=== PATIENT | female | born 1995 | race Caucasian/White ===

== ENCOUNTER 2017-10-08 06:28 | Emergency (ER) | payer SELFPAY ==
[2017-10-08] MEDS ORDERED: ONDANSETRON 4 MG TAB.RAPDIS PO ONE (06:54)
[2017-10-08] MEDS ORDERED: ACETAMINOPHEN 325 MG TABLET PO ONE (06:55)
--- NOTE | 2017-10-08 06:57 | ER Document Report ---
ED General - General Chief Complaint: Abdominal Pain Stated Complaint: BODY PAIN Time Seen by Provider: 10/08/17 06:49 Information source: Patient TRAVEL OUTSIDE OF THE [place] IN LAST 30 DAYS: No - HPI Patient complains to provider of: Possible urinary tract infection Notes: 22-year-old female who states she has a history of "double uterus and single right kidney" who presents with right-sided flank pain and possible UTI. Describes no change in odor to her urine but no frequency, urgency or dysuria. Gradual onset right lower back pain over the last day or so. Nausea but no significant vomiting. Pain radiates around at times to the front. Currently on her menstrual cycle. No fever, chills or sweats. No other modifying factors , no other associated symptoms, no other provocative or palliative factors. - Related Data Allergies/Adverse Reactions: No Known Allergies Allergy (Verified 10/08/17 06:31) Past Medical History - General Last Menstrual Period: Currently menstruating - Social History Smoking Status: Never Smoker Family History: Reviewed & Not Pertinent - Medical History Notes: Describes a history of "double uterus and single kidney", previous urinary tract infections Surgical Hx: Negative Review of Systems - Review of Systems Gastrointestinal: See HPI Genitourinary: See HPI Female Genitourinary: See HPI -: Yes All other systems reviewed and negative Physical Exam - Vital signs Vitals: Temp Pulse Resp BP Pulse Ox 98.2 F 81 20 117/69 99 10/08/17 06:35 10/08/17 06:35 10/08/17 06:35 10/08/17 06:35 10/08/17 06:35 - Notes Notes: General: Well-developed HEENT: NC/AT, PERRL. No pharyngeal injection. Neck: Supple, no JVD. Chest: There with good air exchange. Cardiac: Rate and rhythm Abdomen:, Nondistended, no guarding rigidity or rebound. Nontender. Back: Left CVAT, unremarkable. Motor: Normal tone and power. Neurologic: Alert, nonfocal. Skin: Rashes petechiae or purpura. Extremeties: Perfused, no significant edema. Course - Re-evaluation Re-evalutation: 10/08/17 08:45 22-year-old female presents with symptoms that suggest pyelonephritis. Extremity features include her stated history. She is nontoxic in appearance, not febrile, tachycardic, suspicion for sepsis or severe sepsis is very low. Plan to proceed with DPT, urinalysis, reevaluate. 10/08/17 08:46 Patient is reevaluated, did have some persistent pain responsive to injection morphine. Urinalysis is reviewed and shows evidence of infection. She is treated with injection ceftriaxone, previously received oral Zofran. Discharged home with a prescription for Cipro and ondansetron, asked to follow- up closely with her primary care physician and may benefit from urology follow- up. - Vital Signs Vital signs: Temp Pulse Resp BP Pulse Ox 98.7 F 56 L 18 95/53 L 99 10/08/17 08:42 10/08/17 08:42 10/08/17 08:42 10/08/17 08:42 10/08/17 08:42 - Laboratory Laboratory results interpreted by me: 10/08/17 07:08 Urine Protein 30 H Urine Blood SMALL H Urine Nitrite POSITIVE H Urine Urobilinogen 2.0 H Ur Leukocyte Esterase LARGE H Discharge - Discharge Clinical Impression: Pyelonephritis Condition: Good Disposition: HOME, SELF-CARE Instructions: Pyelonephritis ([facility]) Prescriptions: Ciprofloxacin HCl [Cipro 500 mg Tablet] 500 mg PO BID #20 tablet Ondansetron [Zofran Odt 4 mg Tablet] 1 - 2 tab PO Q4H PRN #15 tab.rapdis PRN Reason: For Nausea/Vomiting
[2017-10-08 07:46] LABS: APPEARANCE,URINE HAZY; BILIRUBIN,URINE NEGATIVE (NEGATIVE); COLOR,URINE YELLOW; GLUCOSE, URINE NEGATIVE (NEGATIVE); KETONES,URINE NEGATIVE (NEGATIVE); NITRITE,URINE POSITIVE (NEGATIVE); PROTEIN,URINE 30 mg/dL (NEGATIVE); URINE SPECIFIC GRAVITY 1.025
[2017-10-08 07:47] LABS: LEUKOCYTE ESTERASE,URINE LARGE (NEGATIVE)
[2017-10-08] MEDS ORDERED: LIDOCAINE 1% INJ-PF (10 MG/ML) 30 ML SDV INJ ONE (07:53)
[2017-10-08] MEDS ORDERED: CEFTRIAXONE INJ 1000 MG VIAL IM ONE (07:53)
[2017-10-08] MEDS ORDERED: MORPHINE SULFATE 10 MG/ML INJ IM ONE (07:53)
[2017-10-08 08:43] VITALS: BP 95/53
== END 2017-10-08 08:44 | disposition home or self-care (01) ==
LOC: ER 06:28
DX: N12 Tubulo-interstitial nephritis, not specified as acute or chronic (principal); M54.5 Low back pain; R11.0 Nausea
CPT/HCPCS: 99283; 96372; 51701; 81025; 81001; S0119; J3490; J2270; J0696

== ENCOUNTER 2017-11-07 23:01 | Emergency (ER) | payer SELFPAY ==
[2017-11-08] MEDS ORDERED: DEXAMETHASONE SOD PHOS INJ 10 MG/1 ML VIAL IV ONE ×2 (01:11→03:18)
[2017-11-08] MEDS ORDERED: AMPICILLIN SOD/SULBACTAM 3 GM VIAL IV ONE (01:11)
--- NOTE | 2017-11-08 01:13 | ER Document Report ---
ED Medical Screen (RME) - General Chief Complaint: Throat and ear pain Stated Complaint: THROAT AND EAR PAIN Time Seen by Provider: 11/08/17 01:10 Mode of Arrival: Ambulatory Information source: Patient Notes: Patient presents complaining of sore throat for the past week that worsened over the past 3 days. Patient reports difficulty with speaking and is texting her information in triage. Patient with erythema and swelling to right peritonsillar area I have greeted and performed a rapid initial assessment of this patient. A comprehensive ED assessment and evaluation of the patient, analysis of test results and completion of the medical decision making process will be conducted by additional ED providers. TRAVEL OUTSIDE OF THE [place] IN LAST 30 DAYS: No - Related Data Allergies/Adverse Reactions: No Known Allergies Allergy (Verified 10/08/17 06:31) Past Medical History Renal/ Medical History: Denies: Hx Peritoneal Dialysis Physical Exam - Vital signs Vitals: Temp Pulse Resp BP Pulse Ox 98.5 F 82 20 128/75 H 100 11/08/17 00:32 11/08/17 00:32 11/08/17 00:32 11/08/17 00:32 11/08/17 00:32 - HEENT Pharynx: Erythema, Peritonsillar abscess Course - Vital Signs Vital signs: Temp Pulse Resp BP Pulse Ox 98.5 F 82 20 128/75 H 100 11/08/17 00:32 11/08/17 00:32 11/08/17 00:32 11/08/17 00:32 11/08/17 00:32
[2017-11-08] MEDS ORDERED: NORMAL SALINE 1000 ML 1,000 ML IV ONE (01:21)
[2017-11-08 01:54] LABS: ABSOLUTE EOSINOPHILS # (AUTO) 0.1 10^3/uL (0.0-0.6); ABSOLUTE LYMPHOCYTES (AUTO) 1.9 10^3/uL (0.5-4.7); ABSOLUTE NEUT (AUTO) 9.2 10^3/uL (1.7-8.2); BASOPHILS % (AUTO) 0.3 % (0-2); EOSINOPHILS % (AUTO) 0.6 % (0-6); HEMATOCRIT 39.3 % (36.0-47.0); HEMOGLOBIN 13.4 g/dL (12.0-15.5); LYMPHOCYTES % (AUTO) 15.8 % (13-45); MEAN CORPUSCULAR HEMOGLOBIN 31.9 pg (27.0-33.4); MEAN CORPUSCULAR HGB CONC 34.1 g/dL (32.0-36.0); MEAN CORPUSCULAR VOLUME 94 fl (80-97); MONOCYTES % (AUTO) 8.2 % (3-13); PLATELET COUNT 283 10^3/uL (150-450); RED BLOOD COUNT 4.19 10^6/uL (3.72-5.28); RED CELL DISTRIBUTION WIDTH 12.1 % (11.5-14.0); SEGMENTED NEUTROPHILS % (AUTO) 75.1 % (42-78); TOTAL CELLS COUNTED % (AUTO) 100 %; WHITE BLOOD COUNT 12.2 10^3/uL (4.0-10.5)
[2017-11-08 02:04] LABS: ANION GAP 12 (5-19); BLOOD UREA NITROGEN 11 mg/dL (7-20); CALCIUM 9.4 mg/dL (8.4-10.2); CARBON DIOXIDE 30 mmol/L (22-30); CHLORIDE 103 mmol/L (98-107); GLUCOSE 104 mg/dL (75-110); POTASSIUM 3.8 mmol/L (3.6-5.0); SODIUM 145.4 mmol/L (137-145)
--- NOTE | 2017-11-08 02:57 | RADIOLOGY REPORT (SQ) ---
EXAM DESCRIPTION: CT SOFT TISSUE NECK WITH CLINICAL HISTORY: 22 years Female, evaluate for abscess COMPARISON: None. TECHNIQUE: IV contrast. Coronal and sagittal reformat. This exam was performed according to our departmental dose-optimization program, which includes automated exposure control, adjustment of the mA and/or kV according to patient size and/or use of iterative reconstruction technique. FINDINGS: Moderate diffuse pharyngeal enlargement, right more than left with small edematous component on the right measuring 0.8 cm; no froylan abscess and no drainable fluid collection. Moderate suprahyoid cervical lymphadenopathy includes a 3 x 1.7 x 1.0 cm right upper cervical lymph node, image 20 of series 301. Mild diffuse reversed lordotic curvature of the cervical spine, nonspecific. No fracture or subluxation. Vertebral and intervertebral heights are normal. Nuchal soft tissues, inferior cranium, and upper thorax appear otherwise grossly intact. Impression: Moderate pharyngitis pattern. Moderate cervical lymphadenopathy. Infectious, inflammatory, neoplastic processes are in the differential diagnosis.
[2017-11-08] MEDS ORDERED: PENICILLIN G BENZATHINE 1.2 MILLION UNIT/2 ML DISP.SYRIN IM ONE (03:16)
--- NOTE | 2017-11-08 04:37 | ER Document Report ---
ED ENT - General Chief Complaint: Throat and ear pain Stated Complaint: THROAT AND EAR PAIN Time Seen by Provider: 11/08/17 01:10 Mode of Arrival: Ambulatory Information source: Patient Notes: Patient is a 22-year-old female who presents the emergency department with complaints of sore throat 10 days. Patient reports that she has been having difficulty swallowing and a hoarse voice for the entire 10 days. Patient denies having any fevers, nausea or vomiting. Patient denies any other past medical history. Patient denies any surgical history. TRAVEL OUTSIDE OF THE [place] IN LAST 30 DAYS: No - Related Data Allergies/Adverse Reactions: No Known Allergies Allergy (Verified 11/08/17 02:00) Past Medical History - General Information source: Patient - Social History Smoking Status: Never Smoker Chew tobacco use (# tins/day): No Drug Abuse: None Family History: Reviewed & Not Pertinent Patient has suicidal ideation: No Patient has homicidal ideation: No Renal/ Medical History: Reports: Hx Kidney Stones. Denies: Hx Peritoneal Dialysis Review of Systems - Review of Systems Constitutional: No symptoms reported EENT: Ear pain - right, Throat pain, Difficulty swallowing Cardiovascular: No symptoms reported Respiratory: No symptoms reported Gastrointestinal: No symptoms reported Genitourinary: No symptoms reported Female Genitourinary: No symptoms reported Musculoskeletal: No symptoms reported Skin: No symptoms reported Hematologic/Lymphatic: No symptoms reported Neurological/Psychological: No symptoms reported Physical Exam - Vital signs Vitals: Temp Pulse Resp BP Pulse Ox 98.5 F 82 20 128/75 H 100 11/08/17 00:32 11/08/17 00:32 11/08/17 00:32 11/08/17 00:32 11/08/17 00:32 - Notes Notes: PHYSICAL EXAMINATION: GENERAL: Well-appearing, well-nourished and in no acute distress. HEAD: Atraumatic, normocephalic. EYES: Pupils equal round and reactive to light, extraocular movements intact, conjunctiva are normal. ENT: Nares patent, oropharynx significantly swollen, uvula midline, exudates. Moist mucous membranes. NECK: Normal range of motion, supple without lymphadenopathy LUNGS: Breath sounds clear to auscultation bilaterally and equal. No wheezes rales or rhonchi. HEART: Regular rate and rhythm without murmurs ABDOMEN: Soft, nontender, nondistended abdomen. No guarding, no rebound. No masses appreciated. Female : deferred Musculoskeletal: Normal range of motion, no pitting or edema. No cyanosis. NEUROLOGICAL: Cranial nerves grossly intact. Normal speech, normal gait. Normal sensory, motor exams PSYCH: Normal mood, normal affect. SKIN: Warm, Dry, normal turgor, no rashes or lesions noted. Course - Re-evaluation Re-evalutation: Patient brought immediately from triage to trauma 1 for concern of possible peritonsillar abscess. Patient is reporting 10 day history of sore throat with hoarse voice and difficulty swallowing. Patient's voice is muffled however she is able to speak in complete sentences and is able to swallow her saliva. CT of the neck soft tissue with contrast ordered, dexamethasone IV and Unasyn ordered. Patient does have significant swelling to the oropharynx however she is maintaining her airway at this time. CT soft tissue shows no peritonsillar abscess or emergent findings. Rapid strep is positive. Patient will be given additional dose of Decadron as well as IM penicillin. Patient already has improvement with first dose of Decadron. Patient is able to tolerate p.o. fluids. Will discharge patient home with strict ED return precautions. Patient verbalizes understanding. Work note provided for 2 days off of work. - Vital Signs Vital signs: Temp Pulse Resp BP Pulse Ox 98.3 F 82 18 114/81 99 11/08/17 04:30 11/08/17 00:32 11/08/17 04:30 11/08/17 04:30 11/08/17 04:30 - Laboratory Result Diagrams: 11/08/17 01:37 11/08/17 01:37 Laboratory results interpreted by me: 11/08/17 11/08/17 01:37 01:37 WBC 12.2 H Absolute Neutrophils 9.2 H Sodium 145.4 H Discharge - Discharge Clinical Impression: Strep pharyngitis Condition: Stable Disposition: HOME, SELF-CARE Instructions: Family Physicians / Practices, Penicillin V K ([facility]), Strep Throat ([facility]) Additional Instructions: Please return to the emergency department immediately if you develop difficulty swallowing, increased pain or fever that is uncontrolled by Tylenol or ibuprofen. You were given the antibiotics shot of penicillin as well as a dose of Decadron IV so there is no need for any further prescriptions. Please establish care with a primary care provider as well at your earliest convenience. Forms: Return to School
[2017-11-08 04:51] VITALS: BP 114/81
== END 2017-11-08 04:51 | disposition home or self-care (01) ==
LOC: ER 23:01
DX: J02.0 Streptococcal pharyngitis (principal); H92.01 Otalgia, right ear; R49.0 Dysphonia
CPT/HCPCS: 96376; 99284; 96372; 96361; 96374; 96375; 36415; 87040; 87880; 85025; 80048; 70491; J0295; J0561; J7030; J1100

== ENCOUNTER 2017-12-22 14:07 | Emergency (ER) | payer MEDICAID, OTHER ==
[2017-12-22 14:15] VITALS: BP 115/68
[2017-12-22] MEDS ORDERED: DEXAMETHASONE SOD PHOS INJ 10 MG/1 ML VIAL IM ONE (14:52)
--- NOTE | 2017-12-22 14:52 | ER Document Report ---
HPI - HPI Pain Level: 1 Notes: Patient is a 22-year-old female with a history of strep pharyngitis who presents to the ED complaining of a sore throat and occasional dry nonproductive cough times 1 week. Patient states that she is still eating and drinking without difficulties. She is urinating normally and having normal bowel movements. She denies any drug allergies. No other concerns or complaints at this time. Denies any headache, fever, neck pain, drooling, hoarseness, troublw swallowing, URI, sore throat, chest pain, palpitations, syncope, cough, shortness of breath, wheeze, dyspnea, abdominal pain, nausea/ vomiting/diarrhea, urinary retention, dysuria, hematuria, or rash. - ROS Systems Reviewed and Negative: Yes All other systems reviewed and negative - EENT EENT: REPORTS: Sore Throat Past Medical History - Social History Smoking Status: Never Smoker Chew tobacco use (# tins/day): No Frequency of alcohol use: Rare Drug Abuse: None Family History: Reviewed & Not Pertinent Patient has suicidal ideation: No Patient has homicidal ideation: No Renal/ Medical History: Reports: Hx Kidney Stones. Denies: Hx Peritoneal Dialysis Past Surgical History: Reports: Hx Orthopedic Surgery - L foot Vertical Provider Document - CONSTITUTIONAL Agree With Documented VS: Yes Notes: PHYSICAL EXAMINATION: GENERAL: Well-appearing, well-nourished and in no acute distress. A&Ox4. Answers questions appropriately. Moves comfortably w/o notable distress HEAD: Atraumatic, normocephalic. EYES: Pupils equal round and reactive to light, extraocular movements intact, sclera anicteric, conjunctiva are normal. ENT: EAC clear b/l. TM's intact b/l without erythema, fluid, or perforation. Nares patent and with clear discharge. oropharynx mild erythema without exudates. 2+ tonsilar hypertrophy with erythema no exudate. No palatine shift. Uvula midline. No tongue protrusion. No drooling, hoarseness, or airway compromise. Moist mucous membranes. No sinus tenderness. NECK: Normal range of motion, supple without lymphadenopathy. No rigidity/ meningismus. LUNGS: Breath sounds clear to auscultation bilaterally and equal. No wheezes rales or rhonchi. No retractions HEART: Regular rate and rhythm without murmurs, rubs, gallops. ABDOMEN: Soft, nontender, nondistended abdomen. No guarding, no rebound. No masses appreciated. Normal bowel sounds present. No CVA tenderness bilaterally. No hepatosplenomegaly. NEUROLOGICAL: Normal speech, normal gait. Normal sensory, motor exams PSYCH: Normal mood, normal affect. SKIN: Warm, Dry, normal turgor, no rashes or lesions noted. - INFECTION CONTROL TRAVEL OUTSIDE OF THE [place] IN LAST 30 DAYS: No Course - Re-evaluation Re-evalutation: 12/22/17 15:14 Patient is an afebrile, well-hydrated, 22-year-old acuteo strep pharyngitis. Vitals are acceptable. PE is otherwise unremarkable. Rapid strep was positive. Patient has no significant tachycardia, tachypnea, or hypoxia. She is tolerating p.o. without difficulties and is nontoxic-appearing. Decadron given IM today. No other labs or imaging warranted at this time based on H&P. Low suspicion for any meningitis, sepsis, peritonsillar/pharyngeal abscess, respiratory compromise, Luis Angel's, or other emergent systemic condition at this time. Patient is aware this condition can change from initial presentation and she needs to monitor symptoms closely. Rx for penicillin. Conservative measures otherwise for symptoms. Recheck with your PCM in 3-5 days. Return to the ED with any worsening/concerning symptoms otherwise as reviewed in discharge. Patient is in agreement. - Vital Signs Vital signs: Temp Pulse Resp BP Pulse Ox 98.5 F 83 16 115/68 99 12/22/17 14:14 12/22/17 14:14 12/22/17 14:14 12/22/17 14:14 12/22/17 14:14 Discharge - Discharge Clinical Impression: Strep pharyngitis Condition: Stable Disposition: HOME, SELF-CARE Instructions: Strep Throat ([facility]), Penicillin V K ([facility]) Additional Instructions: Maintain adequate fluid intake Take meds as directed Salt water gargles, throat sprays, mouthwash rinse, peroxide gargles tylenol/ibuprofen as needed New toothbrush tomorrow night over the counter cold medication as needed for symptoms F/u: with your PCM in 3-5 days for a recheck Consider consult with ENT for ongoing/worsening symptoms Return to the ED with any fever, worsening pain, chest pain, neck pain/stiffness , shortness of breath, cough, drooling, trouble swallowing/breathing, abdominal pain, n/v/d, rash, or worsening/concerning symptoms otherwise. Prescriptions: Penicillin V Potassium [Penicillin Vk 250 mg Tablet] 500 mg PO BID #40 tablet Referrals: RUBENS CRAIG DO [ASSOCIATE] - Follow up as needed
== END 2017-12-22 15:25 | disposition home or self-care (01) ==
LOC: ER 14:07
DX: J02.0 Streptococcal pharyngitis (principal); Z87.442 Personal history of urinary calculi
CPT/HCPCS: 99283; 96372; 87880; J1100

== ENCOUNTER 2018-03-15 15:01 | Emergency (ER) | payer MEDICAID, OTHER ==
[2018-03-15] MEDS ORDERED: FENTANYL CITRATE INJ/PF 100 MCG/2 ML AMPUL IV ONE (15:24)
[2018-03-15] MEDS ORDERED: NORMAL SALINE 1000 ML 1,000 ML IV ONE (15:24)
--- NOTE | 2018-03-15 15:25 | ER Document Report ---
HPI - HPI Patient complains to provider of: Calf pain Onset: Other - 2 days Onset/Duration: Persistent Quality of pain: Achy Pain Level: 5 Context: Patient presents complaining of bilateral calf pain for the past 2 days since working out in the gym. Patient states that she worked her legs heavily 2 days ago. Patient denies going to the gym since then. Patient denies any traumatic injury to the calves. Patient states the pain limits her ability to walk. Associated Symptoms: Other - Bilateral calf pain. denies: Chest pain, Headache , Shortness of breath Exacerbated by: Standing, Movement, Walking Relieved by: Denies Similar symptoms previously: No Recently seen / treated by doctor: No - ROS ROS below otherwise negative: Yes Systems Reviewed and Negative: Yes All other systems reviewed and negative - CONSTITUTIONAL Constitutional: DENIES: Fever - NEURO Neurology: DENIES: Weakness - CARDIOVASCULAR Cardiovascular: DENIES: Chest pain - GASTROINTESTINAL Gastrointestinal: DENIES: Patient vomiting - MUSCULOSKELETAL Musculoskeletal: REPORTS: Extremity pain. DENIES: Swelling - DERM Skin Color: Normal Skin Problems: None Past Medical History - General Information source: Patient - Social History Smoking Status: Never Smoker Frequency of alcohol use: None Drug Abuse: None Occupation: Lives with: Spouse/Significant other Family History: Reviewed & Not Pertinent Renal/ Medical History: Reports: Hx Kidney Stones, Other - Patient with only one kidney. Denies: Hx Peritoneal Dialysis Past Surgical History: Reports: Hx Orthopedic Surgery - L foot Vertical Provider Document - CONSTITUTIONAL Agree With Documented VS: Yes Exam Limitations: No Limitations General Appearance: WD/WN, No Apparent Distress - INFECTION CONTROL TRAVEL OUTSIDE OF THE [place] IN LAST 30 DAYS: No - HEENT HEENT: Atraumatic, Normocephalic - NECK Neck: Normal Inspection - RESPIRATORY Respiratory: Breath Sounds Normal, No Respiratory Distress - CARDIOVASCULAR Cardiovascular: Regular Rate, Regular Rhythm Pulses: Normal: Dorsalis pedis - BACK Back: Normal Inspection - MUSCULOSKELETAL/EXTREMETIES Musculoskeletal/Extremeties: MAEW, Tender - Bilateral calf tenderness, normal skin color and temperature overlying areas of tenderness. Muscle compartments soft, No Edema. negative: Eccymosis Notes: Bilateral calf tenderness increases with plantar and dorsiflexion of feet - NEURO Level of Consciousness: Awake, Alert, Appropriate Motor/Sensory: No Motor Deficit, No Sensory Deficit - DERM Integumentary: Warm, Dry, No Rash Course - Re-evaluation Re-evalutation: 03/15/18 17:[address] Mcdowell regarding patient presentation and patient in the light of only having one kidney. Agrees with plan of care at this time and treating symptomatically. No additional diagnostic tests advised at this time. She is, no concern for compartment syndrome. No concern for rhabdomyolysis. Patient has not worked out for the past 2 days. - Vital Signs Vital signs: Temp Pulse Resp BP Pulse Ox 98.6 F 58 L 114/66 100 03/15/18 15:07 03/15/18 15:07 03/15/18 15:07 03/15/18 15:07 - Laboratory Result Diagrams: 03/15/18 16:30 03/15/18 16:30 Laboratory results interpreted by me: 03/15/18 17:23 Labs- Entire Visit 03/15/18 03/15/18 16:30 16:30 WBC 5.8 RBC 4.29 Hgb 13.7 Hct 40.3 MCV 94 MCH 31.9 MCHC 33.9 RDW 12.2 Plt Count 261 Seg Neutrophils % 49.8 Lymphocytes % 38.2 Monocytes % 9.1 Eosinophils % 2.3 Basophils % 0.6 Absolute Neutrophils 2.9 Absolute Lymphocytes 2.2 Absolute Monocytes 0.5 Absolute Eosinophils 0.1 Absolute Basophils 0.0 Sodium 144.6 Potassium 4.3 Chloride 106 Carbon Dioxide 28 Anion Gap 11 BUN 10 Creatinine 0.71 Est GFR ( Amer) > 60 Est GFR (Non-Af Amer) > 60 Glucose 86 Calcium 9.3 Creatine Kinase 2836 H Discharge - Discharge Clinical Impression: Bilateral calf pain, Muscle strain Condition: Stable Disposition: HOME, SELF-CARE Instructions: Muscle Relaxers ([facility]), Muscle Strain ([facility]) Additional Instructions: Return immediately for any new or worsening symptoms Followup with your primary care provider, call tomorrow to make a followup appointment Prescriptions: Methocarbamol [Robaxin 500 Mg Tablet] 500 mg PO QID PRN #24 tablet PRN Reason: Referrals: [facility] [Provider Group] - Follow up as needed
[2018-03-15 16:43] LABS: ABSOLUTE EOSINOPHILS # (AUTO) 0.1 10^3/uL (0.0-0.6); ABSOLUTE LYMPHOCYTES (AUTO) 2.2 10^3/uL (0.5-4.7); ABSOLUTE MONOCYTES (AUTO) 0.5 10^3/uL (0.1-1.4); ABSOLUTE NEUT (AUTO) 2.9 10^3/uL (1.7-8.2); BASOPHILS % (AUTO) 0.6 % (0-2); EOSINOPHILS % (AUTO) 2.3 % (0-6); HEMATOCRIT 40.3 % (36.0-47.0); HEMOGLOBIN 13.7 g/dL (12.0-15.5); LYMPHOCYTES % (AUTO) 38.2 % (13-45); MEAN CORPUSCULAR HEMOGLOBIN 31.9 pg (27.0-33.4); MEAN CORPUSCULAR HGB CONC 33.9 g/dL (32.0-36.0); MEAN CORPUSCULAR VOLUME 94 fl (80-97); MONOCYTES % (AUTO) 9.1 % (3-13); PLATELET COUNT 261 10^3/uL (150-450); RED BLOOD COUNT 4.29 10^6/uL (3.72-5.28); RED CELL DISTRIBUTION WIDTH 12.2 % (11.5-14.0); SEGMENTED NEUTROPHILS % (AUTO) 49.8 % (42-78); TOTAL CELLS COUNTED % (AUTO) 100 %; WHITE BLOOD COUNT 5.8 10^3/uL (4.0-10.5)
[2018-03-15 17:00] LABS: ANION GAP 11 (5-19); BLOOD UREA NITROGEN 10 mg/dL (7-20); CALCIUM 9.3 mg/dL (8.4-10.2); CARBON DIOXIDE 28 mmol/L (22-30); CHLORIDE 106 mmol/L (98-107); GLUCOSE 86 mg/dL (75-110); POTASSIUM 4.3 mmol/L (3.6-5.0); SODIUM 144.6 mmol/L (137-145)
[2018-03-15 17:08] LABS: CREATINE KINASE 2836 U/L (30-135)
[2018-03-15 17:55] VITALS: BP 97/51
== END 2018-03-15 17:55 | disposition home or self-care (01) ==
LOC: ER 15:01
DX: S86.912A Strain of unspecified muscle(s) and tendon(s) at lower leg level, left leg, initial encounter (principal); S86.911A Strain of unspecified muscle(s) and tendon(s) at lower leg level, right leg, initial encounter; M79.604 Pain in right leg; M79.605 Pain in left leg; X58.XXXA Exposure to other specified factors, initial encounter
CPT/HCPCS: 99283; 96361; 96374; 36415; 82550; 85025; 80048; J3010; J7030

== ENCOUNTER 2018-04-28 01:44 | Emergency (ER) | payer OTHER ==
[2018-04-28 02:57] LABS: ABSOLUTE EOSINOPHILS # (AUTO) 0.2 10^3/uL (0.0-0.6); ABSOLUTE LYMPHOCYTES (AUTO) 2.5 10^3/uL (0.5-4.7); ABSOLUTE MONOCYTES (AUTO) 0.6 10^3/uL (0.1-1.4); ABSOLUTE NEUT (AUTO) 2.8 10^3/uL (1.7-8.2); BASOPHILS % (AUTO) 0.5 % (0-2); HEMATOCRIT 40.1 % (36.0-47.0); LYMPHOCYTES % (AUTO) 41.3 % (13-45); MEAN CORPUSCULAR HEMOGLOBIN 32.4 pg (27.0-33.4); MEAN CORPUSCULAR HGB CONC 34.9 g/dL (32.0-36.0); MEAN CORPUSCULAR VOLUME 93 fl (80-97); MONOCYTES % (AUTO) 9.6 % (3-13); PLATELET COUNT 270 10^3/uL (150-450); RED BLOOD COUNT 4.32 10^6/uL (3.72-5.28); RED CELL DISTRIBUTION WIDTH 12.5 % (11.5-14.0); SEGMENTED NEUTROPHILS % (AUTO) 45.6 % (42-78); TOTAL CELLS COUNTED % (AUTO) 100 %; WHITE BLOOD COUNT 6.1 10^3/uL (4.0-10.5)
[2018-04-28] MEDS ORDERED: NORMAL SALINE 1000 ML 1,000 ML IV ONE (03:06)
[2018-04-28] MEDS ORDERED: ONDANSETRON HCL INJ/PF 4 MG/2 ML SDV IV ONE (03:06)
[2018-04-28] MEDS ORDERED: MORPHINE SULFATE 10 MG/ML INJ IV ONE ×2 (03:09→04:33)
--- NOTE | 2018-04-28 03:23 | ER Document Report ---
ED GI/ - General Mode of Arrival: Ambulatory Information source: Patient TRAVEL OUTSIDE OF THE [place] IN LAST 30 DAYS: No - HPI Patient complains to provider of: Abdominal pain Onset: Yesterday Timing/Duration: Gradual Quality of pain: Achy Severity at maximum: Moderate Severity in ED: Moderate Location: Right flank Vaginal bleeding (Compared to normal period): Similar Associated symptoms: Nausea, Vomiting Exacerbated by: Denies Relieved by: Denies Similar symptoms previously: Yes Recently seen / treated by doctor: No <CARIN HAY - Last Filed: 04/28/18 06:19> <ELIZABETH KO - Last Filed: 04/28/18 07:30> - General Chief Complaint: Abdominal Pain Stated Complaint: ABDOMINAL PAIN Time Seen by Provider: 04/28/18 02:43 - HPI Notes: 04/28/18 03:22 Patient is a 22-year-old female presenting to the emergency room complaining of right flank pain with cramping and nausea and vomiting since yesterday, she reports a history of similar symptoms previously with a urinary tract infection , she was born with only one kidney, she is also currently having menstrual bleeding consistent with her menstrual cycle, denies any fever or chills, no difficulty passing urine or bowel movements (CARIN HAY) - Related Data Allergies/Adverse Reactions: No Known Allergies Allergy (Verified 03/15/18 15:05) Past Medical History - General Information source: Patient - Social History Smoking Status: Never Smoker Chew tobacco use (# tins/day): No Drug Abuse: None Family History: Reviewed & Not Pertinent Patient has suicidal ideation: No Patient has homicidal ideation: No Renal/ Medical History: Reports: Hx Kidney Stones. Denies: Hx Peritoneal Dialysis Past Surgical History: Reports: Hx Orthopedic Surgery - L foot <CARIN HAY - Last Filed: 04/28/18 06:19> Review of Systems - Review of Systems Constitutional: No symptoms reported EENT: No symptoms reported Cardiovascular: No symptoms reported Respiratory: No symptoms reported Gastrointestinal: See HPI Genitourinary: See HPI Female Genitourinary: See HPI Musculoskeletal: No symptoms reported Skin: No symptoms reported Hematologic/Lymphatic: No symptoms reported Neurological/Psychological: No symptoms reported -: Yes All other systems reviewed and negative <CARIN HAY - Last Filed: 04/28/18 06:19> Physical Exam - Vital signs Interpretation: Normal - General General appearance: Appears well, Alert - HEENT Head: Normocephalic, Atraumatic Eyes: Normal Pupils: PERRL - Respiratory Respiratory status: No respiratory distress Chest status: Nontender Breath sounds: Normal Chest palpation: Normal - Cardiovascular Rhythm: Regular Heart sounds: Normal auscultation Murmur: No - Abdominal Inspection: Normal Distension: No distension Bowel sounds: Normal Tenderness: Tender - Right flank and suprapubic Organomegaly: No organomegaly - Back Back: Normal, Nontender - Extremities General upper extremity: Normal inspection, Nontender, Normal color, Normal ROM , Normal temperature General lower extremity: Normal inspection, Nontender, Normal color, Normal ROM , Normal temperature, Normal weight bearing. No: Jorje's sign - Neurological Neuro grossly intact: Yes Cognition: Normal Orientation: AAOx4 Melanie Coma Scale Eye Opening: Spontaneous [place] Coma Scale Verbal: Oriented Melanie Coma Scale Motor: Obeys Commands [place] Coma Scale Total: 15 Speech: Normal Motor strength normal: LUE, RUE, LLE, RLE Sensory: Normal - Psychological Associated symptoms: Normal affect, Normal mood - Skin Skin Temperature: Warm Skin Moisture: Dry Skin Color: Normal <CARIN HAY - Last Filed: 04/28/18 06:19> - Vital signs Vitals: Temp Pulse Resp BP Pulse Ox 97.4 F 63 22 H 131/74 H 99 04/28/18 02:40 04/28/18 02:40 04/28/18 02:40 04/28/18 02:40 04/28/18 02:40 Course - Laboratory Result Diagrams: 04/28/18 02:50 04/28/18 02:50 - Transfer of Care Care transferred to following provider: Dr Crystal Ko, imaging/disposition <CARIN HAY - Last Filed: 04/28/18 06:19> - Laboratory Result Diagrams: 04/28/18 02:50 04/28/18 02:50 <ELIZABETH KO - Last Filed: 04/28/18 07:30> - Re-evaluation Re-evalutation: Patient was signed out to me, her blood work, urinalysis and pelvic ultrasound were reviewed, no evidence of torsion on ultrasound, blood work was unremarkable , normal renal function, her urinalysis did have blood but she is on her menstrual period, no evidence of infection, patient's signs and symptoms seem possibly related to a kidney stone/ureteral stone, however in this patient I do not feel compelled to perform CT imaging on her, she is currently pain-free, she was having colicky type pain, and now she only feels a "twinge, in the suprapubic region just off to the left side, I will discharge her home on Percocet, and 5 days of Flomax, presuming this is most likely a kidney stone, advised her to follow-up with primary care physician, if her symptoms worsen, do not hesitate to return to the emergency department. (ELIZABETH KO) - Vital Signs Vital signs: Temp Pulse Resp BP Pulse Ox 97.5 F 74 18 92/53 L 98 04/28/18 06:43 04/28/18 06:43 04/28/18 06:43 04/28/18 06:43 04/28/18 06:43 - Laboratory Laboratory results interpreted by me: 04/28/18 04/28/18 02:50 03:19 Chloride 108 H Urine Blood LARGE H Ur Leukocyte Esterase SMALL H Discharge <CARIN HAY - Last Filed: 04/28/18 06:19> <ELIZABETH KO - Last Filed: 04/28/18 07:30> - Discharge Clinical Impression: Abdominal pain Qualifiers: Abdominal location: left lower quadrant Qualified Code(s): R10.32 - Left lower quadrant pain Condition: Stable Disposition: HOME, SELF-CARE Instructions: Abdominal Pain ([facility]) Additional Instructions: Please return to the emergency department if you have any worsening, or concern of your symptoms. Please return to the emergency department if you develop chest pain, difficulty breathing, severe abdominal pain, or ongoing vomiting. Please follow-up with your primary care physician in 2-3 days and any other recommended physicians. If prescribed, take all medications as directed. If you have any questions or concerns do not hesitate to return the emergency department for evaluation. Prescriptions: Tamsulosin HCl [Flomax] 0.4 mg PO QHS #5 cap.er.24h Oxycodone HCl/Acetaminophen [Percocet 5-325 mg Tablet] 1 tab PO Q8H PRN #10 tab PRN Reason: general pain Referrals: SARAH MORRISON MD [Primary Care Provider] - Follow up in 3-5 days
[2018-04-28 03:25] LABS: ALANINE AMINOTRANSFERASE 14 U/L (9-52); ALBUMIN 4.1 g/dL (3.5-5.0); ALKALINE PHOSPHATASE 65 U/L (38-126); ANION GAP 10 (5-19); ASPARTATE AMINO TRANSFERASE 14 U/L (14-36); BILIRUBIN,DIRECT 0.1 mg/dL (0.0-0.4); BILIRUBIN,TOTAL 0.3 mg/dL (0.2-1.3); BLOOD UREA NITROGEN 12 mg/dL (7-20); CALCIUM 9.6 mg/dL (8.4-10.2); CARBON DIOXIDE 26 mmol/L (22-30); CHLORIDE 108 mmol/L (98-107); GLUCOSE 92 mg/dL (75-110); SODIUM 143.9 mmol/L (137-145); TOTAL PROTEIN 7.3 g/dL (6.3-8.2)
[2018-04-28 03:40] LABS: APPEARANCE,URINE SLIGHTLY-CLOUDY; BILIRUBIN,URINE NEGATIVE (NEGATIVE); COLOR,URINE YELLOW; GLUCOSE, URINE NEGATIVE (NEGATIVE); KETONES,URINE NEGATIVE (NEGATIVE); LEUKOCYTE ESTERASE,URINE SMALL (NEGATIVE); NITRITE,URINE NEGATIVE (NEGATIVE); PROTEIN,URINE NEGATIVE (NEGATIVE); URINE SPECIFIC GRAVITY 1.024; UROBILINOGEN,URINE NEGATIVE mg/dL (<2.0)
[2018-04-28 06:53] VITALS: BP 92/53
--- NOTE | 2018-04-28 08:40 | RADIOLOGY REPORT (SQ) ---
EXAM DESCRIPTION: U/S NON OB PEL TV W/DOPPLER COMPLETED DATE/TIME: 04/28/2018 8:21 am REASON FOR STUDY: PELVIC PAIN COMPARISON: None. TECHNIQUE: Dynamic and static grayscale images acquired of the pelvis via transvaginal approach and recorded on PACS. Additional selected color Doppler and spectral images recorded. LIMITATIONS: None. FINDINGS: UTERUS: Known didelphus. Otherwise unremarkable. ENDOMETRIAL STRIPE: No focal or generalized thickening. No masses. CERVIX: No nabothian cysts. RIGHT OVARY AND DOPPLER: Normal size. No worrisome masses. Normal arterial vascular flow without evid ence for torsion. LEFT OVARY AND DOPPLER: Normal size. No worrisome masses. Normal arterial vascular flow without evide nce for torsion. FREE FLUID: None noted. OTHER: No other significant finding. MEASUREMENTS: UTERUS: Normal. ENDOMETRIAL STRIPE: Normal. RIGHT OVARY: 3.2 x 1.3 x 1.6 cm LEFT OVARY: 3.2 x 2.8 x 2.3 cm IMPRESSION: Didelphus uterus. Otherwise unremarkable. TECHNICAL DOCUMENTATION: JOB ID: [id number] [employer]- All Rights Reserved Rev-11/27 Reading location - IP/workstation name: [email or web address]
== END 2018-04-28 07:41 | disposition home or self-care (01) ==
LOC: ER 01:44
DX: R10.32 Left lower quadrant pain (principal); R11.2 Nausea with vomiting, unspecified
CPT/HCPCS: 96376; 99284; 96361; 96374; 96375; 36415; 87086; 83690; 84703; 85025; 80053; 81001; 76830; 93976; J2270; J2405; J7030

== ENCOUNTER 2018-05-27 05:08 | Emergency (ER) | payer OTHER ==
--- NOTE | 2018-05-27 05:23 | ER Document Report ---
ED Medical Screen (RME) - General Chief Complaint: Flank Pain Stated Complaint: FLANK PAIN Time Seen by Provider: 05/27/18 05:21 Notes: 22-year-old female patient complaining of right flank pain and left lower quadrant abdominal pain. She was born with a single kidney. She was seen here 29 days ago with the same complaints. She was on her menstrual cycle at that time. She had a negative workup and was discharged on Flomax and Percocet. I have performed a rapid initial assessment of this patient. A comprehensive ED assessment and evaluation of the patient, analysis of test results and completion of the medical decision making process will be conducted by additional ED providers. TRAVEL OUTSIDE OF THE [place] IN LAST 30 DAYS: No - Related Data Allergies/Adverse Reactions: No Known Allergies Allergy (Verified 03/15/18 15:05) Past Medical History Renal/ Medical History: Reports: Hx Kidney Stones. Denies: Hx Peritoneal Dialysis Past Surgical History: Reports: Hx Orthopedic Surgery - L foot Physical Exam - Vital signs Vitals: Temp Pulse Resp BP Pulse Ox 98.4 F 88 22 H 112/77 100 05/27/18 05:12 05/27/18 05:12 05/27/18 05:12 05/27/18 05:12 05/27/18 05:12 Course - Vital Signs Vital signs: Temp Pulse Resp BP Pulse Ox 98.4 F 88 22 H 112/77 100 05/27/18 05:12 05/27/18 05:12 05/27/18 05:12 05/27/18 05:12 05/27/18 05:12 Doctor's Discharge - Discharge Referrals: SARAH MORRISON MD [Primary Care Provider] - Follow up as needed
[2018-05-27 06:01] LABS: APPEARANCE,URINE CLOUDY; BILIRUBIN,URINE NEGATIVE (NEGATIVE); COLOR,URINE YELLOW; GLUCOSE, URINE NEGATIVE (NEGATIVE); KETONES,URINE NEGATIVE (NEGATIVE); LEUKOCYTE ESTERASE,URINE LARGE (NEGATIVE); NITRITE,URINE NEGATIVE (NEGATIVE); PROTEIN,URINE 30 mg/dL (NEGATIVE); URINE SPECIFIC GRAVITY 1.018; UROBILINOGEN,URINE NEGATIVE mg/dL (<2.0)
[2018-05-27] MEDS ORDERED: SULFAMETHOXAZOLE/TRIMETHOPRIM 800-160 MG TABLET PO ONE (06:11)
[2018-05-27] MEDS ORDERED: MORPHINE SULFATE 10 MG/ML INJ IV ONE (06:11)
--- NOTE | 2018-05-27 06:18 | ER Document Report ---
ED General - General Chief Complaint: Flank Pain Stated Complaint: FLANK PAIN Time Seen by Provider: 05/27/18 05:21 TRAVEL OUTSIDE OF THE [place] IN LAST 30 DAYS: No - HPI Notes: Patient is a 22-year-old female that presents to the emergency department for chief complaint of right flank pain. Patient reports right lower quadrant and right flank pain that started at midnight last night. The pain is sharp and radiates around her right side. She denies any aggravating or relieving factors. It has been constant since onset. She reports associated nausea with no vomiting. She reports some dysuria and states she gets frequent urinary tract infections. Patient states this pain always occurs when she is on her menstrual cycle which she just started today. She is unsure if she is or not. Past Medical History: Born with 1 kidney Past Surgical History: Negative Social History: Denies drugs alcohol and tobacco Family History: Reviewed and noncontributory for presenting illness Allergies: Reviewed, see documented allergy list. REVIEW OF SYSTEMS: CONSTITUTIONAL : No fever No chills No diaphoresis No recent illness EENT: No vision changes No congestion No sore throat CARDIOVASCULAR: No chest pain No palpitations RESPIRATORY: No shortness of breath No cough No difficulty breathing GASTROINTESTINAL: abdominal pain nausea No vomiting No diarrhea GENITOURINARY: No dysuria No hematuria No difficulty urinating MUSCULOSKELETAL: No back pain No leg pain No arm pain SKIN: No rashes No lesions LYMPHATIC: No swollen, enlarged glands. NEUROLOGICAL: No lightheadedness No headache No weakness No paresthesias PSYCHIATRIC: No anxiety No depression PHYSICAL EXAMINATION: Vital signs reviewed, nursing noted reviewed. GENERAL: Well-appearing, well-nourished and in no acute distress. HEAD: Atraumatic, normocephalic. EYES: Eyes appear normal, extraocular movements intact, sclera anicteric, conjunctiva are normal. ENT: nares patent, oropharynx clear without exudates. Moist mucous membranes. NECK: Normal range of motion, supple without lymphadenopathy LUNGS: Breath sounds clear to auscultation bilaterally and equal. No wheezes rales or rhonchi. HEART: Regular rate and rhythm without murmurs ABDOMEN: Soft, suprapubic, left lower quadrant and right lower quadrant tenderness, normoactive bowel sounds. No rebound, guarding, or rigidity. No masses appreciated. EXTREMITIES: Nontender, good range of motion, no pitting or edema. NEUROLOGICAL: No focal neurological deficits. Moves all extremities spontaneously Motor and sensory grossly intact on exam. PSYCH: Normal mood, normal affect. SKIN: Warm, Dry, normal turgor, no rashes or lesions noted on exposed skin - Related Data Allergies/Adverse Reactions: No Known Allergies Allergy (Verified 05/27/18 05:33) Past Medical History - Social History Smoking Status: Unknown if Ever Smoked Family History: Reviewed & Not Pertinent Patient has suicidal ideation: No Patient has homicidal ideation: No Renal/ Medical History: Reports: Hx Kidney Stones. Denies: Hx Peritoneal Dialysis Past Surgical History: Reports: Hx Orthopedic Surgery - L foot Review of Systems - Review of Systems Notes: Dictated Physical Exam - Vital signs Vitals: Temp Pulse Resp BP Pulse Ox 98.4 F 88 22 H 112/77 100 05/27/18 05:12 05/27/18 05:12 05/27/18 05:12 05/27/18 05:12 05/27/18 05:12 - Notes Notes: Dictated Course - Re-evaluation Re-evalutation: 05/27/18 06:18 Vitals reviewed. Nursing notes reviewed. Patient given IV fluids and morphine for symptom medic management. Urine hCG is negative. She does have a significant urinary tract infection and will be started on Bactrim. Most of her pain is lower and I do not clinically suspect pyelonephritis. Patient symptoms have been cyclical and occur with menstrual cycle. I discussed the possibility of endometriosis and her need for follow-up at [facility] for further evaluation. Patient is in agreement with this plan and stable at time of discharge. Laboratory 05/27/18 05:22 Urine Color YELLOW Urine Appearance CLOUDY Urine pH 5.0 Ur Specific [place] 1.018 Urine Protein 30 H Urine Glucose (UA) NEGATIVE Urine Ketones NEGATIVE Urine Blood LARGE H Urine Nitrite NEGATIVE Urine Bilirubin NEGATIVE Urine Urobilinogen NEGATIVE Ur Leukocyte Esterase LARGE H Urine WBC (Auto) >182 Urine RBC (Auto) 18 Urine Bacteria (Auto) 2+ Urine WBC Clumps MOD Squamous Epi Cells Auto 18 U Non-Squamous Epis Auto 4 Urine Mucus (Auto) FEW Urine Ascorbic Acid NEGATIVE Urine HCG, Qual NEGATIVE - Vital Signs Vital signs: Temp Pulse Resp BP Pulse Ox 98.4 F 88 22 H 112/77 100 05/27/18 05:12 05/27/18 05:12 05/27/18 05:12 05/27/18 05:12 05/27/18 05:12 - Laboratory Laboratory results interpreted by me: 05/27/18 05:22 Urine Protein 30 H Urine Blood LARGE H Ur Leukocyte Esterase LARGE H Discharge - Discharge Clinical Impression: Right flank pain UTI (urinary tract infection) Qualifiers: Urinary tract infection type: site unspecified Hematuria presence: with hematuria Qualified Code(s): N39.0 - Urinary tract infection, site not specified ; R31.9 - Hematuria, unspecified; R31.9 - Hematuria, unspecified Condition: Stable Disposition: HOME, SELF-CARE Instructions: Urinary Tract Infection ([facility]), Endometriosis ([facility]) Additional Instructions: Please return to the emergency department if you have any worsening, or concern of your symptoms. Please return to the emergency department if you develop chest pain, difficulty breathing, severe abdominal pain, or ongoing vomiting. Please follow-up with your primary care physician in 2-3 days and any other recommended physicians. If prescribed, take all medications as directed. If you have any questions or concerns do not hesitate to return the emergency department for evaluation. I have provided you with educational information on endometriosis. Your pain is related to your menstrual cycle and may be related to endometriosis. For further diagnosis you need to be seen by the [facility]. Their phone number was provided. Please contact them today for further care. Please return to the emergency room for any new or worsening issues. Prescriptions: Sulfamethoxazole/Trimethoprim [Bactrim Ds Tablet] 1 each PO BID #14 tablet Referrals: [facility] [Provider Group] - Follow up in 3-5 days
[2018-05-27 06:44] VITALS: BP 106/63
== END 2018-05-27 06:45 | disposition home or self-care (01) ==
LOC: ER 05:08
DX: N39.0 Urinary tract infection, site not specified (principal); R31.9 Hematuria, unspecified; R10.9 Unspecified abdominal pain; R10.31 Right lower quadrant pain; R11.0 Nausea; R30.0 Dysuria; Z87.440 Personal history of urinary (tract) infections
CPT/HCPCS: 99284; 96374; 81025; 81001; J2270

== ENCOUNTER 2018-08-29 23:51 | Emergency (ER) | payer MEDICAID, OTHER ==
--- NOTE | 2018-08-30 02:10 | RADIOLOGY REPORT (SQ) ---
EXAM DESCRIPTION: XR CHEST 1 VIEW COMPLETED DATE/TME: 08/30/2018 01:12 CLINICAL HISTORY: 22 years Female, sob COMPARISON: None. NUMBER OF VIEWS/TECHNIQUE: 1/AP FINDINGS: Adequate lung volume, clear parenchyma, normal cardiac silhouette, and intact bony thorax. IMPRESSION: No acute cardiopulmonary findings.
[2018-08-30] MEDS ORDERED: DEXAMETHASONE 4 MG TABLET PO ONE (02:29)
[2018-08-30] MEDS ORDERED: ALBUTEROL SULFATE HFA (90 MCG/PUFF) 200 PUFF/8.5 GM MDI IH ONE (02:29)
--- NOTE | 2018-08-30 02:34 | ER Document Report ---
ED General - General Chief Complaint: Breathing Difficulty Stated Complaint: TROUBLE BREATHING Time Seen by Provider: 08/30/18 01:12 Primary Care Provider: SARAH MORRISON MD [Primary Care Provider] - Follow up as needed Notes: Patient is a 22-year-old female with a past medical history of reactive airway disease who presents with sensation of shortness of breath when lying flat as well as feeling short of breath when she exerts herself. Patient states that she feels like she is wheezing, similar to when she has had reactive airway in the past. Has not trying to improve her symptoms. Symptoms have been ongoing for the past several days, worsened tonight vomiting and come to the hospital for further evaluation. She has had a dry, nonproductive cough. Has not seen her primary care doctor regarding today's concerns. Denies any history of DVT or pulmonary embolus. No pleuritic pain. She denies any distinct chest pain. No unilateral leg swelling. No use of estrogen. TRAVEL OUTSIDE OF THE [place] IN LAST 30 DAYS: No - Related Data Allergies/Adverse Reactions: nickel Allergy (Verified 08/30/18 00:02) caterpillars fuzzy Allergy (Uncoded 08/30/18 00:02) Past Medical History - General Information source: Patient - Social History Smoking Status: Never Smoker Frequency of alcohol use: None Drug Abuse: None Lives with: Spouse/Significant other Family History: Reviewed & Not Pertinent Patient has suicidal ideation: No Patient has homicidal ideation: No Renal/ Medical History: Reports: Hx Kidney Stones. Denies: Hx Peritoneal Dialysis Past Surgical History: Reports: Hx Orthopedic Surgery - L foot Review of Systems - Review of Systems Notes: Constitutional: Negative for fever. HENT: Negative for sore throat. Eyes: Negative for visual changes. Cardiovascular: Negative for chest pain. Respiratory: Positive for shortness of breath and wheezing Gastrointestinal: Negative for abdominal pain, vomiting or diarrhea. Genitourinary: Negative for dysuria. Musculoskeletal: Negative for back pain. Skin: Negative for rash. Neurological: Negative for headaches, weakness or numbness. 10 point ROS negative except as marked above and in HPI. Physical Exam - Vital signs Vitals: Temp Pulse Resp BP Pulse Ox 98.3 F 92 16 114/63 100 08/30/18 00:30 08/30/18 00:30 08/30/18 00:30 08/30/18 00:30 08/30/18 00:30 Interpretation: Normal Notes: PHYSICAL EXAMINATION: GENERAL: Well-appearing, well-nourished and in no acute distress. HEAD: Atraumatic, normocephalic. EYES: Pupils equal round and reactive to light, extraocular movements intact, sclera anicteric, conjunctiva are normal. ENT: nares patent, oropharynx clear without exudates. Moist mucous membranes. NECK: Normal range of motion, supple without lymphadenopathy LUNGS: Breath sounds clear to auscultation bilaterally and equal. In the bilateral upper lobes very faint end expiratory wheezing HEART: Regular rate and rhythm without murmurs ABDOMEN: Soft, nontender, normoactive bowel sounds. No guarding, no rebound. No masses appreciated. EXTREMITIES: Normal range of motion, no pitting or edema. No cyanosis. NEUROLOGICAL: No focal neurological deficits. Moves all extremities spontaneously and on command. PSYCH: Normal mood, normal affect. SKIN: Warm, Dry, normal turgor, no rashes or lesions noted. Course - Re-evaluation Re-evalutation: 08/30/18 02:31 Patient presents with what appears to be mild reactive airway disease with a concomitant viral upper respiratory infection. Mild wheezing at time of presentation but vitals do not show significant hypoxemia or tachypnea. No retractions. EKG unremarkable. Chest x-ray without evidence of an acute pneumonia. Patient able to ambulate without any respiratory distress. Based on patient's overall reassuring assessment, I believe they are stable for outpatient management. A dose of dexamethasone has been administered here in the emergency department. I do not suspect an acute alternative pathology at this time based on history and exam including acute pulmonary embolus, ACS, pneumothorax, or aortic dissection. At this time will discharge with return precautions and follow-up recommendations. Verbal discharge instructions given a the bedside and opportunity for questions given. Medication warnings reviewed. Patient is in agreement with this plan and has verbalized understanding of return precautions and the need for primary care follow-up in the next 24-72 hours. - Vital Signs Vital signs: Temp Pulse Resp BP Pulse Ox 98.3 F 92 16 114/63 100 08/30/18 00:30 08/30/18 00:30 08/30/18 00:30 08/30/18 00:30 08/30/18 00:30 - Diagnostic Test Radiology reviewed: Image reviewed, Reports reviewed Radiology results interpreted by me: 08/30/18 02:32 Chest x-ray: No acute infiltrate or pneumothorax - EKG Interpretation by Me Additional EKG results interpreted by me: 08/30/18 02:32 Sinus rhythm, rate 72. No ST elevations or depressions. QTC is 421. Discharge - Discharge Clinical Impression: Shortness of breath, Wheezing Condition: Good Disposition: HOME, SELF-CARE Additional Instructions: It is very important that you return to the emergency department immediately if you began to have worsening difficulty breathing that does not respond to the albuterol inhaler with which you have been sent home. You may use the albuterol inhaler 2 puffs every 4 hours as needed for shortness of breath. You were also given a dose of steroid here in the emergency department. Please also follow closely with your primary care physician. you should also return to emergency department if you develop fever greater than 101, persistent cough, persistent vomiting, pass out, or any other symptoms that are concerning to you. Prescriptions: Albuterol Sulfate [Proair HFA Inhalation Aerosol 8.5 gm MDI] 2 puff IH Q4H PRN #1 mdi PRN Reason: Referrals: SARAH MORRISON MD [Primary Care Provider] - Follow up as needed
[2018-08-30 02:59] VITALS: BP 113/55
--- NOTE | 2018-08-30 07:36 | EKG REPORT ---
SEVERITY:- NORMAL ECG - SINUS RHYTHM : Confirmed by: Eron Ashley MD 30-Aug-2018 07:34:53
== END 2018-08-30 03:00 | disposition home or self-care (01) ==
LOC: ER 23:51
DX: R06.02 Shortness of breath (principal); J45.909 Unspecified asthma, uncomplicated
CPT/HCPCS: 93005; 99285; 71045; 93010; J3490

== ENCOUNTER 2018-12-01 15:59 | Emergency (ER) | payer OTHER ==
[2018-12-01] MEDS ORDERED: NORMAL SALINE 1000 ML 1,000 ML IV ONE (16:21)
[2018-12-01] MEDS ORDERED: ONDANSETRON 4 MG TAB.RAPDIS PO ONE (16:22)
[2018-12-01] MEDS ORDERED: HYDROCODONE/ACETAMINOPHEN 5-325 MG TABLET PO ONE ×2 (16:22→20:55)
--- NOTE | 2018-12-01 16:25 | ER Document Report ---
ED Medical Screen (RME) - General Chief Complaint: Flank Pain Stated Complaint: FLANK PAIN Time Seen by Provider: 12/01/18 16:13 Primary Care Provider: SARAH MORRISON MD [Primary Care Provider] - Follow up as needed Mode of Arrival: Ambulatory Information source: Patient TRAVEL OUTSIDE OF THE [place] IN LAST 30 DAYS: No - HPI Patient complains to provider of: ABDO PAIN Notes: 12/01/18 16:23 Patient here with concerns for possible kidney infection. Patient states that she only has one kidney and often times gets infections. She is been having some low back and lower abdominal pain and is concerned that she has an infection. She feels nauseous but has had no vomiting. No fevers. Exam Nontoxic, rocking back and forth and appears to be somewhat uncomfortable. No distress. Lungs clear and equal throughout. Mild tachycardia. No CVA tenderness. Mild suprapubic tenderness on limited triage abdominal exam. Plan Patient is noted to be tachycardic and tachypneic with possible infection, therefore she is meeting SIRS criteria. I have initiated the sepsis protocol and will give her a liter of normal saline while you are awaiting remainder of her labs. She will be given 2 [place] for pain as well as Zofran ODT. An initial examination was made on the patient as part of the triage process, and it was determined a more comprehensive evaluation was necessary. Initial labs were ordered and patient was transferred to another provider in the ED who assumed care and finished evaluation and plan. - Related Data Allergies/Adverse Reactions: nickel Allergy (Verified 12/01/18 16:00) caterpillars fuzzy Allergy (Uncoded 12/01/18 16:00) Past Medical History Renal/ Medical History: Reports: Hx Kidney Stones. Denies: Hx Peritoneal Dialysis Past Surgical History: Reports: Hx Orthopedic Surgery - L foot Physical Exam - Vital signs Vitals: Temp Pulse Resp BP Pulse Ox 97.9 F 117 H 24 H 110/86 H 98 12/01/18 16:01 12/01/18 16:01 12/01/18 16:01 12/01/18 16:01 12/01/18 16:01 Course - Vital Signs Vital signs: Temp Pulse Resp BP Pulse Ox 97.9 F 117 H 24 H 110/86 H 98 12/01/18 16:01 12/01/18 16:01 12/01/18 16:01 12/01/18 16:01 12/01/18 16:01 Doctor's Discharge - Discharge Referrals: SARAH MORRISON MD [Primary Care Provider] - Follow up as needed
[2018-12-01 18:28] LABS: ABSOLUTE EOSINOPHILS # (AUTO) 0.2 10^3/uL (0.0-0.6); ABSOLUTE LYMPHOCYTES (AUTO) 1.8 10^3/uL (0.5-4.7); ABSOLUTE MONOCYTES (AUTO) 0.5 10^3/uL (0.1-1.4); ABSOLUTE NEUT (AUTO) 4.6 10^3/uL (1.7-8.2); BASOPHILS % (AUTO) 0.4 % (0-2); EOSINOPHILS % (AUTO) 2.8 % (0-6); HEMATOCRIT 42.2 % (36.0-47.0); HEMOGLOBIN 14.5 g/dL (12.0-15.5); LYMPHOCYTES % (AUTO) 25.7 % (13-45); MEAN CORPUSCULAR HEMOGLOBIN 32.6 pg (27.0-33.4); MEAN CORPUSCULAR HGB CONC 34.3 g/dL (32.0-36.0); MEAN CORPUSCULAR VOLUME 95 fl (80-97); MONOCYTES % (AUTO) 6.7 % (3-13); PLATELET COUNT 272 10^3/uL (150-450); RED BLOOD COUNT 4.44 10^6/uL (3.72-5.28); SEGMENTED NEUTROPHILS % (AUTO) 64.4 % (42-78); TOTAL CELLS COUNTED % (AUTO) 100 %; WHITE BLOOD COUNT 7.1 10^3/uL (4.0-10.5)
[2018-12-01 18:30] LABS: APPEARANCE,URINE SLIGHTLY-CLOUDY; BILIRUBIN,URINE NEGATIVE (NEGATIVE); COLOR,URINE YELLOW; GLUCOSE, URINE NEGATIVE (NEGATIVE); KETONES,URINE NEGATIVE (NEGATIVE); LEUKOCYTE ESTERASE,URINE TRACE (NEGATIVE); NITRITE,URINE NEGATIVE (NEGATIVE); PROTEIN,URINE 30 mg/dL (NEGATIVE); URINE SPECIFIC GRAVITY 1.029; UROBILINOGEN,URINE NEGATIVE mg/dL (<2.0)
[2018-12-01 18:53] LABS: ALANINE AMINOTRANSFERASE 12 U/L (9-52); ALBUMIN 4.2 g/dL (3.5-5.0); ALKALINE PHOSPHATASE 73 U/L (38-126); ANION GAP 10 (5-19); ASPARTATE AMINO TRANSFERASE 17 U/L (14-36); BILIRUBIN,DIRECT 0.2 mg/dL (0.0-0.4); BILIRUBIN,TOTAL 0.5 mg/dL (0.2-1.3); BLOOD UREA NITROGEN 14 mg/dL (7-20); CALCIUM 9.6 mg/dL (8.4-10.2); CARBON DIOXIDE 28 mmol/L (22-30); CHLORIDE 105 mmol/L (98-107); GLUCOSE 72 mg/dL (75-110); POTASSIUM 4.5 mmol/L (3.6-5.0); SODIUM 142.9 mmol/L (137-145); TOTAL PROTEIN 7.7 g/dL (6.3-8.2)
--- NOTE | 2018-12-01 20:20 | RADIOLOGY REPORT (SQ) ---
EXAM DESCRIPTION: CT ABD/PELVIS NO ORAL OR IV COMPLETED DATE/TIME: 12/01/2018 7:43 pm REASON FOR STUDY: flank pain COMPARISON: None. TECHNIQUE: CT scan of the abdomen and pelvis performed without intravenous or oral contrast. Images reviewed with lung, soft tissue, and bone windows. Reconstructed coronal and sagittal MPR images revi ewed. All images stored on PACS. All CT scanners at this facility use dose modulation, iterative reconstruction, and/or weight based d osing when appropriate to reduce radiation dose to as low as reasonably achievable (ALARA). [facility]: Dose Right [facility]: CareDose [facility]: Dose Right [facility]: Teradose 4D [facility]: Smart [employer] RADIATION DOSE: CT Rad equipment meets quality standard of care and radiation dose reduction techniq ues were employed. CTDIvol: 13.1 mGy. DLP: 763 mGy-cm.mGy. LIMITATIONS: None. FINDINGS: LOWER CHEST: No significant findings. No nodules or infiltrates. NON-CONTRASTED LIVER, SPLEEN, ADRENALS: Evaluation limited by lack of IV contrast. No identified sign ificant masses. PANCREAS: No masses. No peripancreatic inflammatory changes. GALLBLADDER: No identified stones by CT criteria. No inflammatory changes to suggest cholecystitis. RIGHT KIDNEY AND URETER: Right kidney is a solitary kidney. There is no mass, calcification, or hydr onephrosis or hydroureter. There is compensatory hypertrophy. . LEFT KIDNEY AND URETER: Absent. AORTA AND RETROPERITONEUM: No aneurysm. No retroperitoneal masses or adenopathy. BOWEL AND PERITONEAL CAVITY: No obvious masses or inflammatory changes. No free fluid. APPENDIX: Not identified. PELVIS, BLADDER, AND ABDOMINAL WALL:No abnormal masses. No free fluid. Bladder normal. BONES: No significant findings. OTHER: No other significant finding. IMPRESSION: Solitary right kidney. No acute findings in the abdomen or pelvis. COMMENT: Quality ID # [id number]: Final reports with documentation of one or more dose reduction techniques (e.g., Automated exposure control, adjustment of the mA and/or kV according to patient size, use of iterative reconstruction technique) TECHNICAL DOCUMENTATION: JOB ID: [id number] [id number]- All Rights Reserved Reading location - IP/workstation name: [email or web address]
[2018-12-01] MEDS ORDERED: HYDROCODONE/ACETAMINOPHEN 5-325 MG (6 TAB/ER DISP) PO ONE (20:46)
--- NOTE | 2018-12-01 20:47 | ER Document Report ---
ED General - General Chief Complaint: Flank Pain Stated Complaint: FLANK PAIN Time Seen by Provider: 12/01/18 16:13 Primary Care Provider: [facility] [Provider Group] - Follow up as needed SARAH MORRISON MD [Primary Care Provider] - Follow up as needed Mode of Arrival: Ambulatory TRAVEL OUTSIDE OF THE [place] IN LAST 30 DAYS: No - HPI Notes: Patient is a 23-year-old female that presents to the emergency department for chief complaint of flank pain. Patient reports pain in her low right flank that radiates into her lower right abdomen. She states the pain is sharp and severe. There is no aggravating or relieving factors. She states that is intermittent and has been ongoing for the last 2 days. She states she has one kidney and frequently gets urinary tract infections. She denies dysuria, fever, urinary frequency. She does have some nausea but denies any vomiting. She did start her menstrual cycle and states she has similar symptoms every time she has her menstrual cycle. Patient states she has been told she probably has endometriosis and is in the process of getting an LEAD SECTION SUPERVISOR referral from her PCP. Past Medical History: Negative Past Surgical History: Negative Social History: Denies drugs alcohol and tobacco Family History: Reviewed and noncontributory for presenting illness Allergies: Reviewed, see documented allergy list. REVIEW OF SYSTEMS: CONSTITUTIONAL : No fever No chills No diaphoresis No recent illness EENT: No vision changes No congestion No sore throat CARDIOVASCULAR: No chest pain No palpitations RESPIRATORY: No shortness of breath No cough No difficulty breathing GASTROINTESTINAL: abdominal pain nausea Right flank pain No vomiting No diarrhea GENITOURINARY: No dysuria No hematuria No difficulty urinating MUSCULOSKELETAL: No back pain No leg pain No arm pain SKIN: No rashes No lesions LYMPHATIC: No swollen, enlarged glands. NEUROLOGICAL: No lightheadedness No headache No weakness No paresthesias PSYCHIATRIC: No anxiety No depression PHYSICAL EXAMINATION: Vital signs reviewed, nursing noted reviewed. GENERAL: Well-appearing, well-nourished and in no acute distress. HEAD: Atraumatic, normocephalic. EYES: Eyes appear normal, extraocular movements intact, sclera anicteric, conjunctiva are normal. ENT: nares patent, oropharynx clear without exudates. Moist mucous membranes. NECK: Normal range of motion, supple without lymphadenopathy LUNGS: Breath sounds clear to auscultation bilaterally and equal. No wheezes rales or rhonchi. HEART: Regular rate and rhythm without murmurs ABDOMEN: No CVA tenderness. Soft, nontender, normoactive bowel sounds. No rebound, guarding, or rigidity. No masses appreciated. EXTREMITIES: Nontender, good range of motion, no pitting or edema. NEUROLOGICAL: No focal neurological deficits. Moves all extremities spontaneously Motor and sensory grossly intact on exam. PSYCH: Normal mood, normal affect. SKIN: Warm, Dry, normal turgor, no rashes or lesions noted on exposed skin - Related Data Allergies/Adverse Reactions: nickel Allergy (Verified 12/01/18 16:00) caterpillars fuzzy Allergy (Uncoded 12/01/18 16:00) Past Medical History - General Information source: Patient - Social History Smoking Status: Never Smoker Family History: Reviewed & Not Pertinent Patient has suicidal ideation: No Patient has homicidal ideation: No Renal/ Medical History: Reports: Hx Kidney Stones. Denies: Hx Peritoneal Dialysis Past Surgical History: Reports: Hx Orthopedic Surgery - L foot Physical Exam - Vital signs Vitals: Temp Pulse Resp BP Pulse Ox 97.9 F 117 H 24 H 110/86 H 98 12/01/18 16:01 12/01/18 16:01 12/01/18 16:01 12/01/18 16:01 12/01/18 16:01 Course - Re-evaluation Re-evalutation: 12/01/18 20:50 Vitals reviewed. Nursing notes reviewed. Patient received pain medication and antiemetics in triage. On my evaluation she states she is feeling better. She is resting comfortably and does not appear to be in any acute distress. Her ab dominal exam is benign. Patient did have some hematuria and CT scan was ordered to evaluate for underlying ureterolithiasis. Patient has a normal-appearing CT scan. The hematuria is likely related to her current menstrual cycle. The remainder of her blood work is unremarkable. She has had the exact symptoms that she is experiencing today with all of her menstrual cycles recently. I do suspect she may have endometriosis which has been previously suggested to her. I recommended following up with LEAD SECTION SUPERVISOR for evaluation as an outpatient. Patient is requesting a prescription for Vicodin stating that the last time she had this issue the ER at [facility] gave her a prescription. She states she would like a prescription for [place] or Vicodin for all of her menstrual cycles. At this point I do not feel opiate medication is indicated from the emergency room. She was given another dose in the ER for continued pain control. She is currently not tachycardic and appears comfortable. I did encourage her to talk to her primary care doctor for further pain control since this is an ongoing recurring issue. Laboratory 12/01/18 12/01/18 12/01/18 17:39 17:39 17:39 WBC 7.1 RBC 4.44 Hgb 14.5 Hct 42.2 MCV 95 MCH 32.6 MCHC 34.3 RDW 12.0 Plt Count 272 Seg Neutrophils % 64.4 Lymphocytes % 25.7 Monocytes % 6.7 Eosinophils % 2.8 Basophils % 0.4 Absolute Neutrophils 4.6 Absolute Lymphocytes 1.8 Absolute Monocytes 0.5 Absolute Eosinophils 0.2 Absolute Basophils 0.0 Sodium 142.9 Potassium 4.5 Chloride 105 Carbon Dioxide 28 Anion Gap 10 BUN 14 Creatinine 0.64 Est GFR ( Amer) > 60 Est GFR (Non-Af Amer) > 60 Glucose 72 L Lactic Acid 0.8 Calcium 9.6 Total Bilirubin 0.5 Direct Bilirubin 0.2 Neonat Total Bilirubin Not Reportable Neonat Direct Bilirubin Not Reportable Neonat Indirect Bili Not Reportable AST 17 ALT 12 Alkaline Phosphatase 73 Total Protein 7.7 Albumin 4.2 Serum HCG, Qual Urine Color Urine Appearance Urine pH Ur Specific [place] Urine Protein Urine Glucose (UA) Urine Ketones Urine Blood Urine Nitrite Urine Bilirubin Urine Urobilinogen Ur Leukocyte Esterase Urine WBC (Auto) Urine RBC (Auto) Urine Bacteria (Auto) Squamous Epi Cells Auto Urine Mucus (Auto) Urine Ascorbic Acid 12/01/18 12/01/18 17:39 17:52 WBC RBC Hgb Hct MCV MCH MCHC RDW Plt Count Seg Neutrophils % Lymphocytes % Monocytes % Eosinophils % Basophils % Absolute Neutrophils Absolute Lymphocytes Absolute Monocytes Absolute Eosinophils Absolute Basophils Sodium Potassium Chloride Carbon Dioxide Anion Gap BUN Creatinine Est GFR ( Amer) Est GFR (Non-Af Amer) Glucose Lactic Acid Calcium Total Bilirubin Direct Bilirubin Neonat Total Bilirubin Neonat Direct Bilirubin Neonat Indirect Bili AST ALT Alkaline Phosphatase Total Protein Albumin Serum HCG, Qual NEGATIVE Urine Color YELLOW Urine Appearance SLIGHTLY-CLOUDY Urine pH 6.0 Ur Specific [place] 1.029 Urine Protein 30 H Urine Glucose (UA) NEGATIVE Urine Ketones NEGATIVE Urine Blood LARGE H Urine Nitrite NEGATIVE Urine Bilirubin NEGATIVE Urine Urobilinogen NEGATIVE Ur Leukocyte Esterase TRACE H Urine WBC (Auto) 3 Urine RBC (Auto) 1 Urine Bacteria (Auto) TRACE Squamous Epi Cells Auto 9 Urine Mucus (Auto) OCC Urine Ascorbic Acid 20 H Abdomen/Pelvis CT 12/01/18 19:35 IMPRESSION: Solitary right kidney. No acute findings in the abdomen or pelvis. - Vital Signs Vital signs: Temp Pulse Resp BP Pulse Ox 97.9 F 117 H 24 H 110/86 H 98 12/01/18 16:01 12/01/18 16:01 12/01/18 16:01 12/01/18 16:01 12/01/18 16:01 - Laboratory Result Diagrams: 12/01/18 17:39 12/01/18 17:39 Laboratory results interpreted by me: 12/01/18 12/01/18 17:39 17:52 Glucose 72 L Urine Protein 30 H Urine Blood LARGE H Ur Leukocyte Esterase TRACE H Urine Ascorbic Acid 20 H Discharge - Discharge Clinical Impression: Flank pain, Dysmenorrhea Condition: Stable Disposition: HOME, SELF-CARE Instructions: Dysmenorrhea ([facility]) Additional Instructions: Please return to the emergency department if you have any worsening, or concern of your symptoms. Please return to the emergency department if you develop chest pain, difficulty breathing, severe abdominal pain, or ongoing vomiting. Please follow-up with your primary care physician in 2-3 days and any other recommended physicians. If prescribed, take all medications as directed. If you have any questions or concerns do not hesitate to return the emergency department for evaluation. Referrals: SARAH MORRISON MD [Primary Care Provider] - Follow up as needed [facility] [Provider Group] - Follow up as needed
[2018-12-01 21:09] VITALS: BP 108/72
== END 2018-12-01 21:07 | disposition home or self-care (01) ==
LOC: ER 15:59
DX: N94.6 Dysmenorrhea, unspecified (principal); R10.9 Unspecified abdominal pain; Z87.440 Personal history of urinary (tract) infections; Z87.442 Personal history of urinary calculi; Q60.0 Renal agenesis, unilateral
CPT/HCPCS: 99284; 96360; 96361; 36415; 87040; 87086; 84703; 85025; 80053; 81001; 83605; 74176; S0119; J7030

== ENCOUNTER 2018-12-02 05:06 | Emergency (ER) | payer OTHER ==
[2018-12-02] MEDS ORDERED: HYDROCODONE/ACETAMINOPHEN 5-325 MG (6 TAB/ER DISP) PO PRN (06:36)
[2018-12-02 06:38] VITALS: BP 121/87
--- NOTE | 2018-12-02 14:06 | ER Document Report ---
Entered by RADHA MCLEOD SCRIBE 12/02/18 0641 Acting as scribe for:NEL SARABIA MD ED General - General Chief Complaint: Lower Abdominal Pain Stated Complaint: ABDOMINAL PAIN Time Seen by Provider: 12/02/18 06:09 Primary Care Provider: SARAH MORRISON MD [Primary Care Provider] - 12/02/18 (Call Dr. Morrison's office today to schedule a follow-up appointment in the next few days. 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 Patient describes the pain as an intermittent "horrible, severe cramping" in her lower abdomen. She states the pain is onset when she starts her period starts and normally lasts 3-4 days. Patient states she presented to this emergency department yesterday complaining of identical pain and was told she possibly has endometriosis. She was discharged around 2100 with instructions to follow up with OBGYN. She states while she was here, she was given 3 Vicodin which relieved her pain until 0300 this morning. She states she was instructed to not take any NSAIDS by an ER doctor in [place] due to renal agenesis. Patient's PCP is Dr. Morrison. She states she has been waiting for an appointment with OBGYN for 4-5 months. She is currently prescribed Phentermine. Patient was previously prescribed Cymbalta, Vyvanse, Ritalin, atenolol (for violent outbursts) and Wellbutrin. TRAVEL OUTSIDE OF THE [place] 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) Past Surgical History: Reports: Hx Orthopedic Surgery - L foot Review of Systems - Review of Systems Constitutional: No symptoms reported EENT: No symptoms reported Cardiovascular: No symptoms reported Respiratory: No symptoms reported Gastrointestinal: See HPI, Abdominal pain Genitourinary: No symptoms reported Female Genitourinary: See HPI Musculoskeletal: No symptoms reported Skin: No symptoms reported Hematologic/Lymphatic: No symptoms reported Neurological/Psychological: No symptoms reported -: Yes All other systems reviewed and negative Physical Exam - Vital signs Vitals: Temp Pulse Resp BP Pulse Ox 97.6 F 87 18 136/84 H 98 12/02/18 05:16 12/02/18 05:16 12/02/18 05:16 12/02/18 05:16 12/02/18 05:16 - Notes Notes: GENERAL: Alert, interacts well. No acute distress. HEAD: Normocephalic, atraumatic. EYES: Pupils equal, round, and reactive to light. Extraocular movements intact. ENT: Oral mucosa moist, tongue midline. NECK: Full range of motion. Supple. Trachea midline. LUNGS: Clear to auscultation bilaterally, no wheezes, rales, or rhonchi. No respiratory distress. HEART: Regular rate and rhythm. No murmurs, gallops, or rubs. ABDOMEN: Soft, diffuse abdominal tenderness, worse in the suprapubic region. Non-distended. Very active bowel sounds. No guarding, rigidity, or rebound. EXTREMITIES: Moves all 4 extremities spontaneously. No edema, radial and dorsalis pedis pulses 2/4 bilaterally. No cyanosis. NEUROLOGICAL: Alert and oriented x3. Normal speech. PSYCH: Normal affect, normal mood. SKIN: Warm, dry, normal turgor. No rashes or lesions noted. Course - Vital Signs Vital signs: Temp Pulse Resp BP Pulse Ox 98.1 F 89 21 H 121/87 H 99 12/02/18 06:37 12/02/18 06:37 12/02/18 06:37 12/02/18 06:37 12/02/18 06:37 Discharge - Discharge Clinical Impression: Menstrual cramps Condition: Stable Disposition: HOME, SELF-CARE Additional Instructions: Pelvic Pain There are many causes of pain in the pelvic area. The cause could be the tubes, ovaries, uterus, intestines, appendix, pelvic muscles and connective tissue, or the urinary tract. The cause of your pelvic pain is not clear. However, it seems safe to treat you outside the hospital. If the pain sounds like a temporary problem, we sometimes wait to see if it goes away. Other patients may need additional tests, such as pelvic ultrasound or cultures. Conditions may change. Call us or come back for reexamination if any problems occur, such as: (1) Pain that becomes more severe, steady, or becomes concentrated in one specific area. Also, pain that is more severe with movement or coughing. (2) Vomiting that persists or becomes more frequent. (3) Blood in the vomitus, urine, or bowel movements. Blood in the stool may have a tarry or black appearance. (4) Shaking chills or fever greater than 100 degrees. (5) The abdomen becomes more distended or swollen. (6) Bowel movements cease. (7) Heavy vaginal bleeding. Chronic Pain Control Stress, inactivity, and depression make pain more severe regardless of the cause of the pain. Stress and poor physical condition can cause pain such as headaches and backache. Relaxation: Rest in a quiet place with your eyes closed for 20 minutes twice daily. Concentrate on a pleasant image, or simply "feel" your breathing. Clear your mind. Stress management: Deal with your "stressors." Either take action, or eliminate the stressor from your life. Don't let things hang over you. Accept those things you can't change. Nutrition: Eat small, balanced meals -- don't skip, don't overeat. Meals should be high-carbohydrate, low-sugar, low-fat. Exercise: Exercise helps painful conditions and eases stress. Get 30 minutes of moderate exercise, five days a week. Do an activity that does not flare your pain. Precautions: Pain which continues to disrupt daily activities, or which changes in nature, requires a medical evaluation. Pain Clinic referral is available. We do not manage chronic pain in the Emergency Department. We will try to appropriately help you through an acute flare of your chronic painful condition, but for on-going chronic pain that does not improve, you will need to see your private doctor or hand painter. We do not provide repeated m edication management of chronic painful conditions. If you wish, we can provide the name of local pain management physicians. Call your primary care provider today to schedule an appointment in the next few days to review your [employer]ICULTURE TEACHER referral delay. Discuss the safety of taking NSAIDs for only a few days of the month when you do have menstrual cramps. Discuss pain management referral if necessary. RETURN TO THE EMERGENCY ROOM IF ANY NEW OR WORSENING SYMPTOMS. Referrals: SARAH MORRISON MD [Primary Care Provider] - 12/02/18 ([address] Morrison's office today to schedule a follow-up appointment in the next few days. Ask again about your OLERICULTURE TEACHER referral.) Scribe Attestation: 12/02/18 06:39 I personally performed the services described in the documentation, reviewed and edited the documentation which was dictated to the scribe in my presence, and it accurately records my words and actions. I personally performed the services described in the documentation, reviewed and edited the documentation which was dictated to the scribe in my presence, and it accurately records my words and actions.
== END 2018-12-02 06:50 | disposition home or self-care (01) ==
LOC: ER 05:06
DX: N94.6 Dysmenorrhea, unspecified (principal); R10.30 Lower abdominal pain, unspecified; Z79.899 Other long term (current) drug therapy
CPT/HCPCS: 99283